=== PATIENT | female | born 1995 | race Caucasian/White ===

== ENCOUNTER → 2017-04-04 | Day surgery (SDC) | payer OTHER ==
[~2017-04-04] VITALS: Ht 160 cm; Wt 107.5 kg
[~2017-04-04] MED LIST: NAPROXEN250 MG PO; NORCO 5-325 TA1 EACH PO; SEPTRA DS PO
[2017-04-04 11:27] LABS: HEMOGLOBIN 15.6 gm/dl (12.3-15.3); RED BLOOD COUNT 5.1 M/UL (4.00-5.10); WHITE BLOOD COUNT 13.4 K/UL (4.5-11.0)
== END | disposition home or self-care (01) ==
LOC: OR 10:41
PROVIDERS: Obstetrics & Gynecology
PROC: 0U9M0ZZ Drainage of Vulva, Open Approach (ICD-10-PCS; principal; 2017-04-04 12:30)
DX: N76.2 Acute vulvitis (principal); N76.4 Abscess of vulva; L73.2 Hidradenitis suppurativa; K21.9 Gastro-esophageal reflux disease without esophagitis; F17.210 Nicotine dependence, cigarettes, uncomplicated; Z82.49 Family history of ischemic heart disease and other diseases of the circulatory system; Z83.3 Family history of diabetes mellitus; Z79.899 Other long term (current) drug therapy; Z90.89 Acquired absence of other organs; Z98.890 Other specified postprocedural states
CPT/HCPCS: 81001; 84703; 85025; 87070; 87205; J1885; J2250; J2405; J2795; J7120